=== PATIENT | female | born 1995 | race Caucasian/White ===

== ENCOUNTER 2024-10-23 08:51 | Emergency (ER) | payer MEDICAID ==
[~2024-10-23] VITALS: Ht 157.5 cm; Wt 87.0 kg
--- NOTE | 2024-10-23 09:09 | Physician Documentation ---
History of Present Illness ~ Chief Complaint: Complications Stated Complaint: PREG COMPLICATIONS Time Seen by MD: 09:03 HPI This is a very pleasant 29-year-old female, , who comes in for evaluation of vaginal bleeding that started this morning that she describes as quite a bit. She is 11 weeks . She does not not have established yet, supposed to have a visit tomorrow. Does not have her blood clot. Denies any pain. No particular palliating or aggravating factors. No concern for tobacco, alcohol or illicit substances use. Medication Reconciliation Allergies: Coded Allergies: No Known Allergies (Unverified , 10/23/24) Review of Systems ROS 10 point review of systems was performed and unless noted above in HPI is negative for acute process/complaint. Physical Exam Physical Exam Vital Signs: Temperature: 96.9, Heart Rate: 123, Respiratory Rate: 16, BP: 149/99, Pulse Oximetry: 98, Weight: 87.050 Physical Exam Physical examination: GENERAL: Awake, alert, oriented, GCS 15, no apparent distress, non-toxic appearing, answers questions, follows commands appropriately. HEENT: Atraumatic, normocephalic, pupils equal, extraocular muscles intact Active gross movements, sclerae anicteric, mucus membranes moist, no stridor. NECK: Midline, no JVD CARDIOVASCULAR: Good skin perfusion without evidence of pallor, mottling. PULMONARY: Nonlabored, symmetric chest rise, no audible wheezing, no accessory muscle use, no respiratory distress, speaking in full sentences. GASTROINTESTINAL: Not distended. NEUROLOGIC: Lucid with normal mental status. Normal facial symmetry. Moves all extremities symmetrically and with purpose. No truncal ataxia. Speech is fluid without evidence of dysarthria or aphasia, no focal deficits appreciated. EXTREMITIES: Acute deformities Skin: warm, dry PSYCHIATRIC: Normal affect, normal insight, normal concentration. Focused exam: [] Pelvic exam was deferred due to lack of privacy in triage Progress Results/Orders Results/Orders Orders - CATHLEEN JOHNSON DO US OB (10/23/24 ) Cult Urine + [place] (10/23/24 13:25) Completed Orders - CATHLEEN JOHNSON DO Hcg Serum Qt (10/23/24 08:58) US OB (10/23/24 ) Cbc/Diff (10/23/24 09:03) CMP (10/23/24 09:03) Abo/Rh (Type Only) (10/23/24 09:03) Ua W/Microscopic, Cult If Ind (10/23/24 12:24) Vital Signs 10/23/24 10/23/24 10/23/24 10/23/24 08:53 09:30 10:07 12:00 Temp 96.9 Pulse 123 81 79 Resp 16 16 16 13 B/P (MAP) 149/99 114/84 (94) 110/80 (90) Pulse Ox 98 100 98 O2 Flow Rate 0 0 Laboratory Tests Test 10/23/24 09:23 10/23/24 12:24 White Blood Count 9.8 Red Blood Count 4.14 L Hemoglobin 11.9 L Hematocrit 36.4 Mean Corpuscular Volume 87.9 Mean Corpuscular Hemoglobin 28.8 Mean Corpuscular Hemoglobin Concent 32.7 L Red Cell Distribution Width 14.9 H Platelet Count 361 Mean Platelet Volume 8.4 Neutrophils (%) (Auto) 57.1 Lymphocytes (%) (Auto) 34.2 Monocytes (%) (Auto) 5.8 Eosinophils (%) (Auto) 2.4 Basophils (%) (Auto) 0.5 Neutrophils # (Auto) 5.6 Lymphocytes # (Auto) 3.3 Monocytes # (Auto) 0.6 Eosinophils # (Auto) 0.2 Basophils # (Auto) 0.1 CBC Comment Sodium Level 134 L Potassium Level 3.9 Chloride Level 104 Carbon Dioxide Level 17.2 L Anion Gap 13 Blood Urea Nitrogen 5 L Creatinine 0.56 Estimated GFR/1.73 m2 > 90 BUN/Creatinine Ratio 8.9 L Glucose Level 93 Calcium Level 8.9 Total Bilirubin 0.3 Aspartate Amino Transf (AST/SGOT) 22 Alanine Aminotransferase (ALT/SGPT) 18 Alkaline Phosphatase 86 Total Protein 8.2 Albumin 3.2 L Globulin 5.0 H Albumin/Globulin Ratio 0.6 L HCG Beta Subunit [id number] Chemistry Comments Urine Specimen Description Non-specified Urine Color Carla Urine Clarity Turbid Urine pH 5.5 Urine Specific [place] 1.025 Urine Protein 30 H Urine Glucose (UA) Negative Urine Ketones Trace H Urine Occult Blood Moderate H Urine Nitrite Negative Urine Bilirubin Small Urine Urobilinogen 1.0 Urine Leukocyte Esterase Negative Urine RBC Tntc Urine WBC 5-10 H Urine Squamous Epithelial Cells Few Urine Bacteria Few Urine Culture Indicated Indicated Volume Urine Centrifuged 10 ml Urine Comment Medical Decision Making Findings Facility Status: ED Holds, RME process The plan was discussed with the patient, who demonstrates clear understanding of the plan and is in agreement with the plan unless otherwise noted in the chart. All questions have been answered, all concerns were addressed unless otherwise documented. I was available throughout their ED stay for frequent reassessment and questions. Differential Diagnoses (considered and possible or likely): [Threatened miscarriage, subchorionic hemorrhage, missed , ectopic ] ??Differential Diagnoses (considered and unlikely, not requiring evaluation currently): [No evidence of traumatic injury] MDM Data Please see [facility] for the following: Independent Historians and external Records Review. Historian: [Patient] Independent Historians: ?[None] Medication Management: [Reviewed medication list] Social History and determinants: [Reviewed] Please see the body of the note for the following: Any independent interpretations of ECG, imaging studies. All vitals signs/haemodynamics, ordered tests were independently reviewed and interpreted by myself. Nursing triage complaint and vitals reviewed, additional nursing notes were reviewed as available and I agree unless otherwise noted or documented in contradiction in the chart Vital Signs: Independently reviewed Labs: Independently interpreted Imaging: Independently interpreted Old Medical Records: Independently reviewed, see [facility] for relevant summary and information Pulse Oximetry: [99%] interpreted as [normal on room air] by me Additionally notably showing: [Hemodynamics reviewed. The patient is not febrile, tachycardic but improved with the resolution of anxiety, no evidence of hypotension narrow pulse pressure. UA has a blood but no UTI. Chemistry is unremarkable. Beta HCG consistent with the dates. CBC shows very minimal anemia. Ultrasound was obtained showing a single living noted P with a heart rate of 161.] Tests considered but not ordered include: [Not applicable] Social Determinants of Health Impact: Patient was evaluated in [facility], or [facility] [place] with [place] access to healthcare due to below par ratio of patient to medical providers. [] Comorbid Conditions Impacting Present Evaluation and Care/Treatment: [1st trimester ] Management Discussions with other Healthcare Providers: [None] Treatment and Disposition Medication Management (Given or considered): []. See EMR for details Consideration for Hospitalization/Escalation/Deescalation of Care: Admission for observation has been considered, [however the patient is able to tolerate p.o., their symptoms are controlled, they are able to rely on oral medications, and their chief complaint/diagnosis can be managed on outpatient basis.] ?ED Course:?[No clinical deterioration.] ?Shared decision making:?[Patient is hemodynamically stable for discharge home with follow with their primary care provider. [ ] Specific and cautious return precautions provided and discussed with full understanding. Any incidental findings were also discussed and follow up recommendations given. [] All questions answered. Patient/family were able to verbalize back return precautions. Patient/family agree to plan. Copies of imaging and laboratory studies were provided.] Code status:?FULL Please see the full Electronic Medical Record for full details of nursing documentation, medications list, other records of complete past medical history and conditions, vital signs, laboratory studies, and any radiologic study interpretations by radiologists. Portions of this note were completed using [employer] dictation software and as a result there may exist minor errors in spelling. I have reviewed elements of past family and social history and agree as included in note. Departure Disposition: 01 HOME / SELF CARE / HOMELESS Impression: Primary Impression: Vaginal bleeding in patient after first trimester Additional Impressions: Threatened miscarriage in early First trimester Condition: Improved Discharge Instructions: Vaginal Bleeding During , First Trimester Referrals: NO PRIMARY CARE PROVIDER (PCP) Education Educated: Patient, Family Educated regarding: diagnosis, treatment, prognosis, need for follow up Signature Scribe Signature: No scribe Attestation: This note accurately reflects clinical decisions, work performed by myself, DO ELIZABETH Norris NICHOLAS M DO Oct 23, 2024 09:09
[2024-10-23 09:46] LABS: MEAN PLATELET VOLUME 8.4 FL (7.4-10.4); RED CELL DISTRIBUTION WIDTH 14.9 % (11.5-14.5)
[2024-10-23 10:09] LABS: CREATININE 0.56 MG/DL (0.40-0.90); TOTAL CARBON DIOXIDE 17.2 MMOL/L (24-32); eCRCL 117 ML/MIN; eGFR > 90 ML/MIN
--- NOTE | 2024-10-23 10:12 | RADIOLOGY REPORT ---
OB ULTRASOUND <14 WEEKS: HISTORY: 11 wk preg, bag bleed TECHNIQUE: Multiple real-time grayscale sonographic images of the pelvis with duplex Doppler color f low, spectral and M-mode analysis. TRANSDUCERS: Transabdominal COMPARISON: None FINDINGS: The uterus measures 11.4 x 6.5 x 7.1 cm The cervix is not visualized Ovaries are not visualized. IUP single fetus at 11 weeks and 3 days average ultrasound age based on mean crown-rump length of 4. 7 cm heart rate detected at 161 beats per minute. Yolk sac is not visualized. Amniotic fluid is subjectively within normal limits Jen-gestational space: Unremarkable IMPRESSION: IUP single live fetus 11 weeks and 3 days AUA corresponding to an HILDA of 05/11/2025. No acute abnormality detected.
[2024-10-23 12:00] VITALS: PULSE 79
[2024-10-23 12:46] LABS: LEUKOCYTE ESTERASE ,URINE NEGATIVE (Neg); OCCULT BLOOD,URINE MODERATE (Neg)
[2024-10-23 12:47] LABS: NITRITES, URINE NEGATIVE (Neg)
[2024-10-23 12:48] LABS: UA COLLECTION TYPE NON-SPECIFIED
[2024-10-23 13:23] LABS: SQUAMOUS EPITHELIAL CELL,UR FEW /LPF (FEW)
[2024-10-23 13:46] VITALS: BP 120/78; RESP 18; TEMP 96.9; O2SAT 99
== END 2024-10-23 13:54 | disposition home or self-care (01) ==
LOC: ER 08:52
DX: O20.0 Threatened abortion (principal); Z3A.11 11 weeks gestation of pregnancy
CPT/HCPCS: 36415; 76801; 80053; 81001; 84702; 85025; 86900; 86901; 87088; 99284